=== PATIENT | male | born 1975 | race American Indian/Alaskan Native ===

== ENCOUNTER 2017-02-02 07:06 | Emergency (ER) | payer MEDICARE ==
[2017-02-02 07:53] LABS: Basophils % (Auto) 1.2 % (0.0-1.8); Eosinophils % (Auto) 0.2 % (0.0-4.3); Hematocrit 48.2 % (35.5-45.6); Hemoglobin 16.2 gm/dl (11.8-15.2); Mean Corpuscular HGB Conc 34 % (32-34); Mean Corpuscular Hemoglobin 31 pg (28-32); Mean Corpuscular Volume 93 fl (84-94); Platelet Count 212 K/mm3 (140-440); Red Blood Count 5.18 M/mm3 (3.65-5.03); Red Cell Distribution Width 13.7 % (13.2-15.2); White Blood Count 10.6 K/mm3 (4.5-11.0)
[2017-02-02 08:07] LABS: Anion Gap 20 mmol/L; BUN/Creatinine Ratio 14.44; Blood Urea Nitrogen 13 mg/dL (9-20); Calcium 9.7 mg/dL (8.4-10.2); Carbon Dioxide 20 mmol/L (22-30); Chloride 98.2 mmol/L (98-107); Glucose 99 mg/dL (75-100); Potassium 3.6 mmol/L (3.6-5.0); Sodium 135 mmol/L (137-145)
[2017-02-02] MEDS ORDERED: MOTRIN PO ONE (11:42)
[2017-02-02] MEDS ORDERED: ZOFRAN ODT PO ONE (11:42)
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
[2017-02-02 14:58] VITALS: BP 124/63
== END 2017-02-02 14:57 | disposition home or self-care (01) ==
LOC: ED 07:06
DX: R07.89 Other chest pain (principal); F17.200 Nicotine dependence, unspecified, uncomplicated
CPT/HCPCS: 36415; 80048; 84484; 85025; 93005; 93010; Q0162

== ENCOUNTER 2017-10-09 02:44 | Emergency (ER) | payer MEDICARE ==
[2017-10-09 02:51] VITALS: BP 151/97
[2017-10-09 03:14] LABS: Basophils % (Auto) 0.9 % (0.0-1.8); Eosinophils % (Auto) 1.1 % (0.0-4.3); Hematocrit 45.5 % (35.5-45.6); Hemoglobin 15.7 gm/dl (11.8-15.2); Mean Corpuscular HGB Conc 35 % (32-34); Mean Corpuscular Hemoglobin 33 pg (28-32); Mean Corpuscular Volume 94 fl (84-94); Platelet Count 192 K/mm3 (140-440); Red Blood Count 4.84 M/mm3 (3.65-5.03); Red Cell Distribution Width 13.5 % (13.2-15.2); White Blood Count 9.4 K/mm3 (4.5-11.0)
--- NOTE | 2017-10-09 03:24 | XRay Report ---
FINAL REPORT EXAM: XR CHEST ROUTINE 2V HISTORY: SOB TECHNIQUE: PA and lateral views of the chest were submitted. FINDINGS: Heart size and mediastinum appear normal. The thoracic aorta is mildly tortuous. The lungs are clear. Pleural fluid is not seen. The bones and soft tissues reveal disc degeneration in the thoracic spine. IMPRESSION: No active chest disease.
[2017-10-09 03:33] LABS: Alanine Aminotransferase 14 units/L (7-56); Albumin 4.3 g/dL (3.9-5); Albumin/Globulin Ratio 1.5 %; Alkaline Phosphatase 64 units/L (35-129); Anion Gap 17 mmol/L; BUN/Creatinine Ratio 15; Blood Urea Nitrogen 16 mg/dL (9-20); Calcium 8.9 mg/dL (8.4-10.2); Carbon Dioxide 25 mmol/L (22-30); Chloride 97.6 mmol/L (98-107); Glucose 112 mg/dL (75-100); Potassium 3.6 mmol/L (3.6-5.0); Sodium 136 mmol/L (137-145); Total Protein 7.1 g/dL (6.3-8.2)
[2017-10-09] MEDS ORDERED: TORADOL IM ONE (06:10)
[2017-10-09] MEDS ORDERED: ULTRAM PO ONE (06:10)
--- NOTE | 2017-10-09 06:24 | Emergency Department Report ---
- General Chief Complaint: Pain General Stated Complaint: BODY PAIN Time Seen by Provider: 10/09/17 05:59 Source: patient, EMS Mode of arrival: Ambulatory Limitations: No Limitations - History of Present Illness Initial Comments: 42-year-old male denies a previous diagnosis of hypertension presents to the hospital will complaints of body aches, cough, and chills for 7 days. Cough productive of yellow sputum. Patient has 7/10 generalized body aches and chest pain with cough and palpation. Patient did not receive a flu shot. The contacts or recent travel reported. This complains of mild shortness of breath. BP elevated upon arrival patient denies a known history. On previous medical reviewed the pressure has been elevated in the past but then returned to normal during ED stay. PMD: None - Related Data Previous Rx's Medication Instructions Recorded Last Taken Type Benzonatate [Tessalon Perles] 100 mg PO Q8HR #20 capsule 10/09/17 Unknown Rx Ibuprofen [Motrin] 800 mg PO Q8HR PRN #30 tablet 10/09/17 Unknown Rx Sodium Chloride [Saline Nasal 88 ml NS PRN PRN #1 bottle 10/09/17 Unknown Rx Hubbard] traMADol [Ultram 50 MG tab] 50 mg PO Q6HR PRN #15 tablet 10/09/17 Unknown Rx Allergies Allergy/AdvReac Type Severity Reaction Status Date / Time No Known Allergies Allergy Unverified 02/02/17 07:18 ED Review of Systems ROS: Stated complaint: BODY PAIN Other details as noted in HPI Comment: All other systems reviewed and negative Other: Constitutional: No fevers. Positive chills reported Eyes: No eye pain visual changes ENT: No ear pain or throat pain Neck: Denies pain Respiratory: as per hpi Cardiovascular: Denies chest pain, palpitations, syncope GI: Denies abdominal pain, nausea, vomiting, diarrhea : Denies dysuria, urinary frequency, or urgency Musculoskeletal: as per hpi Skin: Denies rash, lesions, erythema Neurologic: Denies headache, numbness, weakness Psychiatric: Denies suicidal ideation, hallucinations ED Past Medical Hx - Past Medical History Previous Medical History?: Yes Hx Hypertension: Yes Hx Psychiatric Treatment: Yes Additional medical history: [place] - Surgical History Additional Surgical History: Eye removed, Right knee surgery - Social History Smoking Status: Current Some Day Smoker Substance Use Type: None - Medications Home Medications: Home Medications Medication Instructions Recorded Confirmed Last Taken Type Benzonatate [Tessalon Perles] 100 mg PO Q8HR #20 capsule 10/09/17 Unknown Rx Ibuprofen [Motrin] 800 mg PO Q8HR PRN #30 tablet 10/09/17 Unknown Rx Sodium Chloride [Saline Nasal 88 ml NS PRN PRN #1 bottle 10/09/17 Unknown Rx Hubbard] traMADol [Ultram 50 MG tab] 50 mg PO Q6HR PRN #15 tablet 10/09/17 Unknown Rx ED Physical Exam - General Limitations: No Limitations - Other Other exam information: General: No limitations, patient is alert in no acute distress Head exam: Atraumatic, normocephalic Eyes exam: Normal appearanc ENT: Moist mucous membrane and no tender cervical lymphadenopathy Neck exam: Normal inspection, full range of motion, no meningismus nontender Respiratory exam: Clear to auscultation bilateral, no wheezes, rales, crackles Cardiovascular: Normal rate and rhythm, normal heart sounds anterior chest wall tenderness Abdomen: Soft, nondistended, and nontender, with normal bowel sounds, no rebound, or guarding Extremity: Full range of motion normal inspection no deformity Back: Normal Inspection, full range of motion, no tenderness Neurologic: Alert, oriented x3, cranial nerves intact, no motor or sensory deficit Psychiatric: normal affect, normal mood Skin: Warm, dry, intact ED Course Vital Signs 10/09/17 10/09/17 02:47 02:50 Temperature 98.1 F 98.4 F Pulse Rate 86 Respiratory 18 18 Rate Blood Pressure 151/97 151/97 O2 Sat by Pulse 98 Oximetry - Reevaluation(s) Reevaluation #1: 10/09/17 06:27 Tramadol and Toradol provided for pain ED Medical Decision Making - Lab Data Result diagrams: 10/09/17 02:54 10/09/17 02:54 Lab Results 10/09/17 10/09/17 Range/Units 02:54 02:54 WBC 9.4 (4.5-11.0) K/mm3 RBC 4.84 (3.65-5.03) M/mm3 Hgb 15.7 H (11.8-15.2) gm/dl Hct 45.5 (35.5-45.6) % MCV 94 (84-94) fl MCH 33 H (28-32) pg MCHC 35 H (32-34) % RDW 13.5 (13.2-15.2) % Plt Count 192 (140-440) K/mm3 Lymph % (Auto) 44.0 H (13.4-35.0) % [place] % (Auto) 5.4 (0.0-7.3) % Eos % (Auto) 1.1 (0.0-4.3) % Baso % (Auto) 0.9 (0.0-1.8) % Lymph # 4.1 (1.2-5.4) K/mm3 [place] # 0.5 (0.0-0.8) K/mm3 Eos # 0.1 (0.0-0.4) K/mm3 Baso # 0.1 (0.0-0.1) K/mm3 Seg Neutrophils % 48.6 (40.0-70.0) % Seg Neutrophils # 4.6 (1.8-7.7) K/mm3 Sodium 136 L (137-145) mmol/L Potassium 3.6 (3.6-5.0) mmol/L Chloride 97.6 L (98-107) mmol/L Carbon Dioxide 25 (22-30) mmol/L Anion Gap 17 mmol/L BUN 16 (9-20) mg/dL Creatinine 1.1 (0.8-1.5) mg/dL Estimated GFR > 60 ml/min BUN/Creatinine Ratio 15 % Glucose 112 H (75-100) mg/dL Calcium 8.9 (8.4-10.2) mg/dL Total Bilirubin 0.60 (0.1-1.2) mg/dL AST 19 (5-40) units/L ALT 14 (7-56) units/L Alkaline Phosphatase 64 (35-129) units/L Total Protein 7.1 (6.3-8.2) g/dL Albumin 4.3 (3.9-5) g/dL Albumin/Globulin Ratio 1.5 % - Radiology Data Radiology results: report reviewed (Chest x-ray: no acute findings) - Medical Decision Making X-ray negative for infiltrate. Labs unremarkable. Patient was treated for viral syndrome. Blood pressure elevated. Patient instructed to monitor his blood as an outpatient, recorded values, and follow-up with the primary care doctor for further management. - Differential Diagnosis pneumonia, bronchitis, viral syndrome, influenza Critical Care Time: No Critical care attestation.: If time is entered above; I have spent that time in minutes in the direct care of this critically ill patient, excluding procedure time. ED Disposition Clinical Impression: Viral syndrome, Body aches, Elevated blood pressure reading Disposition: TO HOME OR SELFCARE Is pt being admited?: No Does the pt Need Aspirin: No Condition: Stable Instructions: Viral Syndrome (ED), How to Take a Blood Pressure (ED) Additional Instructions: Take medication as prescribed. Continue to monitor your blood pressure discussed. Return symptoms worsen Prescriptions: Benzonatate [Tessalon Perles] 100 mg PO Q8HR #20 capsule Ibuprofen [Motrin] 800 mg PO Q8HR PRN #30 tablet PRN Reason: Pain Sodium Chloride [Saline Nasal Hubbard] 88 ml NS PRN PRN #1 bottle PRN Reason: Nasal Congestion traMADol [Ultram 50 MG tab] 50 mg PO Q6HR PRN #15 tablet PRN Reason: Pain Referrals: PRIMARY CAREMD [Primary Care Provider] - 3-5 Days CASSY DOSHI MD, PHD [Staff Physician] - 3-5 Days [facility] [Provider Group] - 3-5 Days Time of Disposition: 06:31
== END 2017-10-09 06:54 | disposition home or self-care (01) ==
LOC: ED 02:44
DX: B34.9 Viral infection, unspecified (principal); M79.1 Myalgia; I10 Essential (primary) hypertension; H40.9 Unspecified glaucoma; F17.200 Nicotine dependence, unspecified, uncomplicated
CPT/HCPCS: 36415; 71020; 80053; 85025; 96372; 99284; J1885

== ENCOUNTER 2019-09-18 00:52 | Emergency (ER) | payer MEDICARE ==
--- NOTE | 2019-09-18 02:40 | Ultrasound Report ---
ULTRASOUND SCROTUM INDICATION / CLINICAL INFORMATION: Right scrotum pain and swelling. COMPARISON: None available. FINDINGS -- RIGHT TESTIS: Size = 2.9 x 3.3 x 2.3 cm. - Appearance: No significant abnormality. - Cyst or Mass: None. - Color Doppler Flow: Slightly increased. EPIDIDYMIS: Mildly enlarged. HYDROCELE: Small. VARICOCELE: None demonstrated. FINDINGS -- LEFT TESTIS: Size = 2.5 x 3.1 x 2.6 cm. - Appearance: No significant abnormality. - Cyst or Mass: None. - Color Doppler Flow: No significant abnormality. EPIDIDYMIS: No significant abnormality. HYDROCELE: Tiny. VARICOCELE: None demonstrated. ADDITIONAL FINDINGS: None. IMPRESSION: 1. Possible mild right epididymoorchitis. Small right hydrocele. Signer Name: Sophy Howard MD Signed: 09/18/2019 2:35 AM Workstation Name: [id number]
[2019-09-18] MEDS ORDERED: MORPHINE 4 MG/1 ML INJ IV ONE (02:41)
[2019-09-18] MEDS ORDERED: SODIUM CHLORIDE 0.9% 1000 ML 1,000 ML IV ONE (02:41)
[2019-09-18] MEDS ORDERED: ONDANSETRON 4 MG/2 ML INJ IV ONE (02:42)
[2019-09-18] MEDS ORDERED: DOXYCYCLINE HYCLATE 100 MG in SODIUM CHLORIDE 0.9% 250ML 250 ML IV ONE (03:00)
--- NOTE | 2019-09-18 03:47 | Emergency Department Report ---
HPI <TERESA GARAY - Last Filed: 09/18/19 04:19> - HPI HPI: 44-year-old male presents to the emergency department with complaint of pain to the right side of the scrotum, groin and abdomen that started around 2 PM this afternoon. He has some mild discomfort while urinating and also thinks that he has noticed some blood in the urine. He denies any fever, back pain, nausea, vomiting, diarrhea. He has not taken anything for his symptoms prior to presentation today. He has a past medical history of hypertension, glaucoma, cataracts and left eye removal. He denies any trauma or injury. <JOSE EDUARDOTHOMAS S - Last Filed: 09/19/19 06:06> - General Chief Complaint: Urogenital-Male Time Seen by Provider: 09/18/19 02:24 ED Past Medical Hx <TERESA GARAY - Last Filed: 09/18/19 04:19> - Past Medical History Previous Medical History?: Yes Hx Hypertension: Yes Hx Psychiatric Treatment: Yes Additional medical history: [place] - Surgical History Past Surgical History?: Yes Additional Surgical History: Eye removed, Right knee surgery - Social History Smoking Status: Current Every Day Smoker Substance Use Type: Alcohol, Marijuana <JOSE EDUARDOTHOMAS Bob - Last Filed: 09/19/19 06:06> - Medications Home Medications: Home Medications Medication Instructions Recorded Confirmed Last Taken Type Benzonatate [Tessalon Perles] 100 mg PO Q8HR #20 capsule 10/09/17 Unknown Rx Ibuprofen [Motrin] 800 mg PO Q8HR PRN #30 tablet 10/09/17 Unknown Rx Sodium Chloride [Saline Nasal 88 ml NS PRN PRN #1 bottle 10/09/17 Unknown Rx [place]] traMADol [Ultram 50 MG tab] 50 mg PO Q6HR PRN #15 tablet 10/09/17 Unknown Rx Doxycycline Hyclate [Doxycycline 100 mg PO Q12HR #20 tab 09/18/19 Unknown Rx Hyclate TAB] ED Review of Systems ROS: Stated complaint: R SIDE GROIN SWELLING Other details as noted in HPI <TERESA GARAY - Last Filed: 09/18/19 04:19> ROS: Stated complaint: R SIDE GROIN SWELLING Other details as noted in HPI Comment: All other systems reviewed and negative Constitutional: denies: chills, fever Gastrointestinal: abdominal pain. denies: nausea, vomiting Genitourinary: dysuria, hematuria, testicular pain Musculoskeletal: denies: back pain <THOMAS WHITT - Last Filed: 09/19/19 06:06> Physical Exam - Physical Exam Vital Signs: Vital Signs 09/18/19 09/18/19 00:58 02:38 Temperature 98.4 F 98.4 F Pulse Rate 104 H 83 Respiratory 18 17 Rate Blood Pressure 143/89 Blood Pressure 137/86 [Left] O2 Sat by Pulse 96 98 Oximetry <TERESA GARAY - Last Filed: 09/18/19 04:19> - Physical Exam Vital Signs: Vital Signs 09/18/19 09/18/19 00:58 02:38 Temperature 98.4 F 98.4 F Pulse Rate 104 H 83 Respiratory 18 17 Rate Blood Pressure 143/89 Blood Pressure 137/86 [Left] O2 Sat by Pulse 96 98 Oximetry Physical Exam: GENERAL: The patient is well-developed well-nourished. HENT: Normocephalic. Atraumatic. Patient has moist mucous membranes. EYES: Extraocular motions are intact. NECK: Supple. Trachea is midline. CHEST/LUNGS: Clear to auscultation. There is no respiratory distress noted. HEART/CARDIOVASCULAR: Regular. There is no tachycardia. There is no murmur. ABDOMEN: Abdomen is soft. There is some right middle to lower quadrant abdominal tenderness to palpation. No guarding. Patient has normal bowel sounds. There is no abdominal distention. SKIN: Skin is warm and dry. NEURO: The patient is awake, alert, and oriented. The patient is cooperative. Normal speech. MUSCULOSKELETAL: There is no tenderness or deformity. There is no limitation range of motion. There is no evidence of acute injury. : There is tenderness to palpation of the right testicle and right side of the scrotum. No obvious lesions. <THOMAS WHITT S - Last Filed: 09/19/19 06:06> ED Course Vital Signs 09/18/19 09/18/19 00:58 02:38 Temperature 98.4 F 98.4 F Pulse Rate 104 H 83 Respiratory 18 17 Rate Blood Pressure 143/89 Blood Pressure 137/86 [Left] O2 Sat by Pulse 96 98 Oximetry <TERESA GARAY - Last Filed: 09/18/19 04:19> Vital Signs 11/08/19 11/08/19 00:58 02:38 Temperature 98.4 F 98.4 F Pulse Rate 104 H 83 Respiratory 18 17 Rate Blood Pressure 143/89 Blood Pressure 137/86 [Left] O2 Sat by Pulse 96 98 Oximetry <THOMAS WHITT - Last Filed: 09/19/19 06:06> ED Medical Decision Making - Radiology Data CT ABDOMEN AND PELVIS WITHOUT CONTRAST INDICATION / CLINICAL INFORMATION: RLQ pain down to the scrotum. TECHNIQUE: Axial CT images were obtained through the abdomen and pelvis without IV contrast. All CT scans at this location are performed using CT dose reduction for ALARA by means of automated exposure control. COMPARISON: Ultrasound scrotum dated 09/18/19 FINDINGS: LOWER CHEST: No significant abnormality. LIVER: No significant abnormality. GALLBLADDER: No significant abnormality. BILE DUCTS: No significant abnormality. PANCREAS: No significant abnormality. SPLEEN: No significant abnormality. ADRENALS: No significant abnormality. RIGHT KIDNEY and URETER: No significant abnormality. LEFT KIDNEY and URETER: No significant abnormality. STOMACH and SMALL BOWEL: No significant abnormality. COLON: No significant abnormality. APPENDIX: No significant abnormality. PERITONEUM: No free fluid. No free air. No fluid collection. LYMPH NODES: No significant adenopathy. AORTA and ARTERIES: No significant abnormality. IVC and VEINS: No significant abnormality. URINARY BLADDER: No significant abnormality. REPRODUCTIVE ORGANS: No significant abnormality. ADDITIONAL FINDINGS: Very small fat-containing right inguinal hernia. SKELETAL SYSTEM: No significant abnormality. IMPRESSION: 1. No urinary tract stones or hydronephrosis. 2. No inflammatory process or bowel obstruction. Normal appendix. 3. Small fat-containing right inguinal hernia. Signer Name: Sophy Howard MD Signed: 09/18/2019 3:57 AM Workstation Name: [employer] ULTRASOUND SCROTUM INDICATION / CLINICAL INFORMATION: Right scrotum pain and swelling. COMPARISON: None available. FINDINGS -- RIGHT TESTIS: Size = 2.9 x 3.3 x 2.3 cm. - Appearance: No significant abnormality. - Cyst or Mass: None. - Color Doppler Flow: Slightly increased. EPIDIDYMIS: Mildly enlarged. HYDROCELE: Small. VARICOCELE: None demonstrated. FINDINGS -- LEFT TESTIS: Size = 2.5 x 3.1 x 2.6 cm. - Appearance: No significant abnormality. - Cyst or Mass: None. - Color Doppler Flow: No significant abnormality. EPIDIDYMIS: No significant abnormality. HYDROCELE: Tiny. VARICOCELE: None demonstrated. ADDITIONAL FINDINGS: None. IMPRESSION: 1. Possible mild right epididymoorchitis. Small right hydrocele. Signer Name: Sophy Howard MD Signed: 09/18/2019 2:35 AM Workstation Name: [id number] Transcribed By: DT Dictated By: Triston Howard MD Electronically Authenticated By: Triston Howard MD Signed Date/Time: 09/18/19 0235 <TERESA GARAY - Last Filed: 09/18/19 04:19> - Medical Decision Making This patient presents with some acute right-sided testicular/scrotal pain with some pain that goes up to the lower to mid right side of the abdomen. A testicular ultrasound was done that does not show any torsion but does show some mild right epididymal orchitis. Patient also had a CT scan of the abdomen and pelvis without contrast that did not show any stone or any other acute process. Patient was given pain medication in the emergency department and was resting comfortably. He was also given a dose of doxycycline and Rocephin. Patient be discharged home to follow up with primary care, urology, and has been placed on a ten-day course of antibiotics. He will return to the ER with any worsening of his symptoms or any acute distress. - Differential Diagnosis torsion, epididymitis, orchitis, nephrolithiasis <THOMAS WHITT - Last Filed: 09/19/19 06:06> Critical care attestation.: If time is entered above; I have spent that time in minutes in the direct care of this critically ill patient, excluding procedure time. <TERESA GARAY - Last Filed: 09/18/19 04:19> Critical Care Time: No Critical care attestation.: If time is entered above; I have spent that time in minutes in the direct care of this critically ill patient, excluding procedure time. <THOMAS WHITT - Last Filed: 09/19/19 06:06> ED Disposition Is pt being admited?: No <TERESA GARAY - Last Filed: 09/18/19 04:19> Is pt being admited?: No Time of Disposition: 03:47 <THOMAS WHITT - Last Filed: 09/19/19 06:06> Clinical Impression: Epididymo-orchitis, Testicular pain, right Abdominal pain Qualifiers: Abdominal location: right lower quadrant Qualified Code(s): R10.31 - Right lower quadrant pain Disposition: TO HOME OR SELFCARE Condition: Stable Instructions: Epididymitis (ED) Additional Instructions: Please follow-up with a primary care physician in the next few days. I have also given you a referral for a local urologist, Dr. Castanon, to follow up regarding the testicular pain and the epididymo-orchitis. Return to the emergency Department with any worsening of your symptoms or any acute distress. Prescriptions: Doxycycline Hyclate [Doxycycline Hyclate TAB] 100 mg PO Q12HR #20 tab Referrals: PRIMARY CAREMD [Primary Care Provider] - 3-5 Days CARLOS A CASTANON MD [Staff Physician] - 3-5 Days [facility] [Outside] - 3-5 Days Forms: STI Treatment and Prevention, Work/School Release Form(ED)
[2019-09-18] MEDS ORDERED: LIDOCAINE-MPF (1%) 10 MG/1 ML VIAL 5 ML INFILTRATI ONE (03:51)
--- NOTE | 2019-09-18 04:01 | Cat Scan Report ---
CT ABDOMEN AND PELVIS WITHOUT CONTRAST INDICATION / CLINICAL INFORMATION: RLQ pain down to the scrotum. TECHNIQUE: Axial CT images were obtained through the abdomen and pelvis without IV contrast. All CT scans at [facility] location are performed using CT dose reduction for ALARA by means of automated exposure control. COMPARISON: Ultrasound scrotum dated 09/18/19 FINDINGS: LOWER CHEST: No significant abnormality. LIVER: No significant abnormality. GALLBLADDER: No significant abnormality. BILE DUCTS: No significant abnormality. PANCREAS: No significant abnormality. SPLEEN: No significant abnormality. ADRENALS: No significant abnormality. RIGHT KIDNEY and URETER: No significant abnormality. LEFT KIDNEY and URETER: No significant abnormality. STOMACH and SMALL BOWEL: No significant abnormality. COLON: No significant abnormality. APPENDIX: No significant abnormality. PERITONEUM: No free fluid. No free air. No fluid collection. LYMPH NODES: No significant adenopathy. AORTA and ARTERIES: No significant abnormality. IVC and VEINS: No significant abnormality. URINARY BLADDER: No significant abnormality. REPRODUCTIVE ORGANS: No significant abnormality. ADDITIONAL FINDINGS: Very small fat-containing right inguinal hernia. SKELETAL SYSTEM: No significant abnormality. IMPRESSION: 1. No urinary tract stones or hydronephrosis. 2. No inflammatory process or bowel obstruction. Normal appendix. 3. Small fat-containing right inguinal hernia. Signer Name: Sophy Howard MD Signed: 09/18/2019 3:57 AM Workstation Name: [id number]
[2019-09-18 04:38] VITALS: BP 113/56
== END 2019-09-18 05:05 | disposition home or self-care (01) ==
LOC: ED 00:52
DX: N45.3 Epididymo-orchitis (principal); I10 Essential (primary) hypertension; F17.200 Nicotine dependence, unspecified, uncomplicated; F12.10 Cannabis abuse, uncomplicated; Z79.899 Other long term (current) drug therapy; Z98.890 Other specified postprocedural states
CPT/HCPCS: 74176; 93975; 96365; 96372; 96375; 99283; J0696; J2270; J2405; J7030; J7050

== ENCOUNTER 2019-11-05 06:00 | Emergency (ER) | payer MEDICARE ==
[2019-11-05] MEDS ORDERED: cloNIDine 0.2 MG TAB PO ONE (13:04)
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
[2019-11-05 13:30] LABS: Bilirubin,Urine NEG (Negative); Blood,Urine NEG (Negative); Color,Urine Yellow (Yellow); Protein,Urine <15 mg/dL mg/dL (Negative); Urobilinogen,Urine < 2.0 mg/dL (<2.0); WBC,Urine < 1.0 /HPF (0.0-6.0)
[2019-11-05 13:38] LABS: Amphetamine Screen,Urine PRESUMPTIVE NEGATIVE; Benzodiazepines Screen,Urine PRESUMPTIVE NEGATIVE; Methadone Screen,Urine PRESUMPTIVE NEGATIVE; Opiate Screen,Urine PRESUMPTIVE NEGATIVE
[2019-11-05 13:51] LABS: Cannabinoid Screen,Urine PRESUMPTIVE POSITIVE; Cocaine Screen,Urine PRESUMPTIVE POSITIVE
[2019-11-05 16:31] LABS: Basophils % (Auto) 0.6 % (0.0-1.8); Eosinophils # (Auto) 0.1 K/mm3 (0.0-0.4); Eosinophils % (Auto) 1.3 % (0.0-4.3); Hemoglobin 15.7 gm/dl (11.8-15.2); Lymphocytes # (Auto) 2.8 K/mm3 (1.2-5.4); Lymphocytes % (Auto) 41.4 % (13.4-35.0); Mean Corpuscular HGB Conc 33 % (32-34); Mean Corpuscular Volume 96 fl (84-94); Monocytes # (Auto) 0.4 K/mm3 (0.0-0.8); Monocytes % (Auto) 5.8 % (0.0-7.3); Platelet Count 217 K/mm3 (140-440); Red Cell Distribution Width 13.5 % (13.2-15.2)
[2019-11-05 16:47] LABS: Alanine Aminotransferase 10 units/L (7-56); Albumin 4.1 g/dL (3.9-5); BUN/Creatinine Ratio 13; Blood Urea Nitrogen 14 mg/dL (9-20); Calcium 9.4 mg/dL (8.4-10.2); Hemolysis Index 6
[2019-11-05 17:03] VITALS: BP 109/63
== END 2019-11-05 18:49 ==
LOC: EEVIPCON 06:00 → ED 06:00
DX: F32.9 Major depressive disorder, single episode, unspecified (principal); F14.10 Cocaine abuse, uncomplicated; F12.10 Cannabis abuse, uncomplicated; F17.200 Nicotine dependence, unspecified, uncomplicated; F19.10 Other psychoactive substance abuse, uncomplicated; I10 Essential (primary) hypertension; Z79.899 Other long term (current) drug therapy; Z98.890 Other specified postprocedural states
CPT/HCPCS: 36415; 80053; 80307; 80320; 81001; 82550; 85025; G0480

== ENCOUNTER 2019-11-18 10:58 | Emergency (ER) | payer MEDICARE ==
--- NOTE | 2019-11-18 13:49 | Event Note ---
ED Screening Note Date of service: 11/18/19 Time: 13:47 ED Screening Note: This is a 44 y.o. M. that presents to the ER for substance abuse. Patient states he was released from [facility] Saturday. He relapsed last night on cocaine due to depression. Denies SI/HI. This initial assessment/diagnostic orders/clinical plan/treatment(s) is/are subject to change based on patients health status, clinical progression and re- assessment by fellow clinical providers in the ED. Further treatment and workup at subsequent clinical providers discretion. Patient/guardian urged not to elope from the ED as their condition may be serious if not clinically assessed and managed. Initial orders include: Labs
[2019-11-18 14:27] LABS: Basophils # (Auto) 0.1 K/mm3 (0.0-0.1); Basophils % (Auto) 0.7 % (0.0-1.8); Eosinophils # (Auto) 0.1 K/mm3 (0.0-0.4); Eosinophils % (Auto) 1.2 % (0.0-4.3); Hematocrit 44.8 % (35.5-45.6); Hemoglobin 15.4 gm/dl (11.8-15.2); Lymphocytes % (Auto) 32.9 % (13.4-35.0); Mean Corpuscular HGB Conc 34 % (32-34); Mean Corpuscular Volume 95 fl (84-94); Monocytes # (Auto) 0.6 K/mm3 (0.0-0.8); Monocytes % (Auto) 6.9 % (0.0-7.3); Platelet Count 211 K/mm3 (140-440); Red Blood Count 4.74 M/mm3 (3.65-5.03); Red Cell Distribution Width 13.6 % (13.2-15.2)
[2019-11-18 14:49] LABS: BUN/Creatinine Ratio 21; Blood Urea Nitrogen 21 mg/dL (9-20); Calcium 9.6 mg/dL (8.4-10.2); Hemolysis Index 17
[2019-11-18 15:19] LABS: Bilirubin,Urine NEG (Negative); Blood,Urine NEG (Negative); Color,Urine Yellow (Yellow); Mucus,Urine FEW /HPF; Protein,Urine <15 mg/dL mg/dL (Negative); WBC,Urine < 1.0 /HPF (0.0-6.0)
[2019-11-18 15:35] LABS: Amphetamine Screen,Urine PRESUMPTIVE NEGATIVE; Benzodiazepines Screen,Urine PRESUMPTIVE NEGATIVE; Methadone Screen,Urine PRESUMPTIVE NEGATIVE; Opiate Screen,Urine PRESUMPTIVE NEGATIVE
[2019-11-18 15:47] LABS: Cannabinoid Screen,Urine PRESUMPTIVE POSITIVE; Cocaine Screen,Urine PRESUMPTIVE POSITIVE
--- NOTE | 2019-11-18 22:50 | Emergency Department Report ---
<CARLOS BACKMaicol - Last Filed: 11/18/19 22:46> ED Medical Clearance HPI - General Chief complaint: Medical Clearance Stated complaint: DETOX Time Seen by Provider: 11/18/19 13:46 Source: patient Mode of arrival: Ambulatory - History of Present Illness Initial comments: Patient is 44 years old male with history of depression and drug abuse mainly cocaine abuse. Patient presented to the ER requesting and medical clearance and admission to a detox program. Patient stated that he was released from [facility] detox facility last Saturday but he relapsed yesterday. Patient denied any suicidal or homicidal ideation. Patient also denied any auditory or visual hallucination. MD Complaint: medical clearance request Reason for Medical Clearance: intoxication Traumatic Symptoms: denies traumatic injury Treatments Prior to Arrival: none Home medications: Home Medications Medication Instructions Recorded Confirmed Last Taken No Known Home Medications [No 11/19/19 11/19/19 Unknown Reported Home Medications] Allergies/Adverse reactions: Allergies Allergy/AdvReac Type Severity Reaction Status Date / Time No Known Allergies Allergy Verified 11/18/19 13:48 ED Review of Systems Comment: All other systems reviewed and negative Constitutional: denies: chills, fever Respiratory: denies: cough, shortness of breath, SOB with exertion, wheezing Cardiovascular: denies: chest pain, palpitations Gastrointestinal: denies: abdominal pain, nausea, vomiting Musculoskeletal: denies: back pain Neurological: denies: headache, weakness Psychiatric: denies: anxiety, depression, auditory hallucinations, visual hallucinations, homicidal thoughts, suicidal thoughts ED Past Medical Hx - Past Medical History Previous Medical History?: Yes Hx Hypertension: Yes Hx Psychiatric Treatment: Yes (depression- off zoloft and ambien for months) Additional medical history: 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 Also surg to [facility] years ago. - Surgical History Additional Surgical History: Eye removed, Right knee surgery - Social History Smoking Status: Current Some Day Smoker Substance Use Type: Alcohol, Cocaine - Medications Home Medications: Home Medications Medication Instructions Recorded Confirmed Last Taken Type No Known Home Medications [No 11/19/19 11/19/19 Unknown History Reported Home Medications] ED Physical Exam - General Limitations: No Limitations General appearance: alert, in no apparent distress - Head Head exam: Present: atraumatic, normocephalic, normal inspection - ENT ENT exam: Present: normal exam, normal orophraynx, mucous membranes moist - Neck Neck exam: Present: normal inspection, full ROM. Absent: tenderness, meningismus - Respiratory Respiratory exam: Present: normal lung sounds bilaterally - Cardiovascular Cardiovascular Exam: Present: regular rate, normal rhythm, normal heart sounds - GI/Abdominal GI/Abdominal exam: Present: soft, normal bowel sounds. Absent: distended, tenderness, guarding, rebound, rigid, organomegaly, mass, bruit, pulsatile mass, hernia - Extremities Exam Extremities exam: Present: normal inspection, full ROM, normal capillary refill. Absent: pedal edema, calf tenderness - Back Exam Back exam: Present: normal inspection, full ROM. Absent: CVA tenderness (R), CVA tenderness (L), muscle spasm, paraspinal tenderness, vertebral tenderness - Neurological Exam Neurological exam: Present: alert, oriented X3, CN II-XII intact, normal gait, reflexes normal - Psychiatric Psychiatric exam: Present: normal mood. Absent: depressed, agitated, anxious, flat affect, manic, homicidal ideation, suicidal ideation - Skin Skin exam: Present: warm, intact, normal color ED Medical Decision Making - Lab Data Result diagrams: 11/18/19 13:56 11/18/19 13:56 ED Disposition Clinical Impression: Polysubstance abuse, Cocaine abuse Disposition: DC-01 TO HOME OR SELFCARE Condition: Stable Additional Instructions: Please see referrals for outpatient therapy Referrals: PRIMARY CARE, [Primary Care Provider] - 3-5 Days <TERESA GARAY - Last Filed: 11/19/19 10:57> ED Review of Systems ROS: Stated complaint: DETOX Other details as noted in HPI ED Course Vital Signs 11/18/19 11/18/19 11:27 22:52 Temperature 98.2 F 98.3 F Pulse Rate 109 H 80 Respiratory 18 18 Rate Blood Pressure 176/100 Blood Pressure 153/109 [Left] O2 Sat by Pulse 92 98 Oximetry ED Medical Decision Making - Lab Data Result diagrams: 11/18/19 13:56 11/18/19 13:56 Lab Results 11/18/19 11/18/19 11/18/19 Range/Units 13:56 13:56 13:56 WBC (4.5-11.0) K/mm3 RBC (3.65-5.03) M/mm3 Hgb (11.8-15.2) gm/dl Hct (35.5-45.6) % MCV (84-94) fl MCH (28-32) pg MCHC (32-34) % RDW (13.2-15.2) % Plt Count (140-440) K/mm3 Lymph % (Auto) (13.4-35.0) % [place] % (Auto) (0.0-7.3) % Eos % (Auto) (0.0-4.3) % Baso % (Auto) (0.0-1.8) % Lymph # (1.2-5.4) K/mm3 [place] # (0.0-0.8) K/mm3 Eos # (0.0-0.4) K/mm3 Baso # (0.0-0.1) K/mm3 Seg Neutrophils % (40.0-70.0) % Seg Neutrophils # (1.8-7.7) K/mm3 Sodium 141 (137-145) mmol/L Potassium 4.0 (3.6-5.0) mmol/L Chloride 102.3 (98-107) mmol/L Carbon Dioxide 20 L (22-30) mmol/L Anion Gap 23 mmol/L BUN 21 H (9-20) mg/dL Creatinine 1.0 (0.8-1.5) mg/dL Estimated GFR > 60 ml/min BUN/Creatinine Ratio 21 % Glucose 116 H (75-100) mg/dL Calcium 9.6 (8.4-10.2) mg/dL Urine Color (Yellow) Urine Turbidity (Clear) Urine pH (5.0-7.0) Ur Specific [place] (1.003-1.030) Urine Protein (Negative) mg/dL Urine Glucose (UA) (Negative) mg/dL Urine Ketones (Negative) mg/dL Urine Blood (Negative) Urine Nitrite (Negative) Urine Bilirubin (Negative) Urine Urobilinogen (<2.0) mg/dL Ur Leukocyte Esterase (Negative) Urine WBC (Auto) (0.0-6.0) /HPF Urine RBC (Auto) (0.0-6.0) /HPF U Epithel Cells (Auto) (0-13.0) /HPF Urine Mucus /HPF Salicylates < 0.3 L (2.8-20.0) mg/dL Urine Opiates Screen Urine Methadone Screen Acetaminophen < 5.0 L (10.0-30.0) ug/mL Ur Barbiturates Screen Ur Phencyclidine Scrn Ur Amphetamines Screen U Benzodiazepines Scrn Urine Cocaine Screen U Marijuana (THC) Screen Drugs of Abuse Note Plasma/Serum Alcohol (0-0.07) % 11/18/19 11/18/19 11/18/19 Range/Units 13:56 13:56 14:55 WBC 9.2 (4.5-11.0) K/mm3 RBC 4.74 (3.65-5.03) M/mm3 Hgb 15.4 H (11.8-15.2) gm/dl Hct 44.8 (35.5-45.6) % MCV 95 H (84-94) fl MCH 32 (28-32) pg MCHC 34 (32-34) % RDW 13.6 (13.2-15.2) % Plt Count 211 (140-440) K/mm3 Lymph % (Auto) 32.9 (13.4-35.0) % [place] % (Auto) 6.9 (0.0-7.3) % Eos % (Auto) 1.2 (0.0-4.3) % Baso % (Auto) 0.7 (0.0-1.8) % Lymph # 3.0 (1.2-5.4) K/mm3 [place] # 0.6 (0.0-0.8) K/mm3 Eos # 0.1 (0.0-0.4) K/mm3 Baso # 0.1 (0.0-0.1) K/mm3 Seg Neutrophils % 58.3 (40.0-70.0) % Seg Neutrophils # 5.4 (1.8-7.7) K/mm3 Sodium (137-145) mmol/L Potassium (3.6-5.0) mmol/L Chloride (98-107) mmol/L Carbon Dioxide (22-30) mmol/L Anion Gap mmol/L BUN (9-20) mg/dL Creatinine (0.8-1.5) mg/dL Estimated GFR ml/min BUN/Creatinine Ratio % Glucose (75-100) mg/dL Calcium (8.4-10.2) mg/dL Urine Color Yellow (Yellow) Urine Turbidity Clear (Clear) Urine pH 6.0 (5.0-7.0) Ur Specific [place] 1.026 (1.003-1.030) Urine Protein <15 mg/dl (Negative) mg/dL Urine Glucose (UA) Neg (Negative) mg/dL Urine Ketones Neg (Negative) mg/dL Urine Blood Neg (Negative) Urine Nitrite Neg (Negative) Urine Bilirubin Neg (Negative) Urine Urobilinogen 2.0 (<2.0) mg/dL Ur Leukocyte Esterase Neg (Negative) Urine WBC (Auto) < 1.0 (0.0-6.0) /HPF Urine RBC (Auto) 3.0 (0.0-6.0) /HPF U Epithel Cells (Auto) < 1.0 (0-13.0) /HPF Urine Mucus Few /HPF Salicylates (2.8-20.0) mg/dL Urine Opiates Screen Urine Methadone Screen Acetaminophen (10.0-30.0) ug/mL Ur Barbiturates Screen Ur Phencyclidine Scrn Ur Amphetamines Screen U Benzodiazepines Scrn Urine Cocaine Screen U Marijuana (THC) Screen Drugs of Abuse Note Plasma/Serum Alcohol < 0.01 (0-0.07) % 11/18/19 Range/Units 14:55 WBC (4.5-11.0) K/mm3 RBC (3.65-5.03) M/mm3 Hgb (11.8-15.2) gm/dl Hct (35.5-45.6) % MCV (84-94) fl MCH (28-32) pg MCHC (32-34) % RDW (13.2-15.2) % Plt Count (140-440) K/mm3 Lymph % (Auto) (13.4-35.0) % [place] % (Auto) (0.0-7.3) % Eos % (Auto) (0.0-4.3) % Baso % (Auto) (0.0-1.8) % Lymph # (1.2-5.4) K/mm3 [place] # (0.0-0.8) K/mm3 Eos # (0.0-0.4) K/mm3 Baso # (0.0-0.1) K/mm3 Seg Neutrophils % (40.0-70.0) % Seg Neutrophils # (1.8-7.7) K/mm3 Sodium (137-145) mmol/L Potassium (3.6-5.0) mmol/L Chloride (98-107) mmol/L Carbon Dioxide (22-30) mmol/L Anion Gap mmol/L BUN (9-20) mg/dL Creatinine (0.8-1.5) mg/dL Estimated GFR ml/min BUN/Creatinine Ratio % Glucose (75-100) mg/dL Calcium (8.4-10.2) mg/dL Urine Color (Yellow) Urine Turbidity (Clear) Urine pH (5.0-7.0) Ur Specific [place] (1.003-1.030) Urine Protein (Negative) mg/dL Urine Glucose (UA) (Negative) mg/dL Urine Ketones (Negative) mg/dL Urine Blood (Negative) Urine Nitrite (Negative) Urine Bilirubin (Negative) Urine Urobilinogen (<2.0) mg/dL Ur Leukocyte Esterase (Negative) Urine WBC (Auto) (0.0-6.0) /HPF Urine RBC (Auto) (0.0-6.0) /HPF U Epithel Cells (Auto) (0-13.0) /HPF Urine Mucus /HPF Salicylates (2.8-20.0) mg/dL Urine Opiates Screen Presumptive negative Urine Methadone Screen Presumptive negative Acetaminophen (10.0-30.0) ug/mL Ur Barbiturates Screen Presumptive negative Ur Phencyclidine Scrn Presumptive negative Ur Amphetamines Screen Presumptive negative U Benzodiazepines Scrn Presumptive negative Urine Cocaine Screen Presumptive positive U Marijuana (THC) Screen Presumptive positive Drugs of Abuse Note Disclamer Plasma/Serum Alcohol (0-0.07) % - Medical Decision Making Patient has been seen by our mental health assessment team. Patient has had arrangement to follow up with a residential detox program the patient is safe for discharge. 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 Pt is alert and oriented x 4. Pt reports no AH or VH. Pt was neatly groomed and had hygiene completed. The is able to vocalize his needs, good insight and judgement. Pt has a reports a history of Schizoaffective Disorder. The pt was recently treated inpatient at [facility] for command auditory hallucinations and substance use. The pt reports that he is now seeking [facility] substance use treatment. No SI. No HI.Pt reports a lengthy history of cocaine dependence. Pt reports that he was clean while at [facility] recently. The pt reports he relapsed after getting out. "I want real help; somewhere custodial."Pt reports he has no stable housing. RECOMMENDATION: Pt does not meet inpatient criteria due to no SI, no HI and no AH or VH. Mental health security system installer will provide outpatient referrals for residential substance treatment and complete discharge safety plan. Emely Alberto LPC Initialized on 11/19/19 10:28 - END OF NOTE ED Disposition Is pt being admited?: No Does the pt Need Aspirin: No Time of Disposition: 10:56
[2019-11-19 12:37] VITALS: BP 130/87
== END 2019-11-19 15:00 | disposition home or self-care (01) ==
LOC: ED 10:58 → EEVIPCON 10:58 → ED 11-19 15:00
DX: F14.10 Cocaine abuse, uncomplicated (principal); F19.10 Other psychoactive substance abuse, uncomplicated; I10 Essential (primary) hypertension; F17.200 Nicotine dependence, unspecified, uncomplicated; Z98.890 Other specified postprocedural states
CPT/HCPCS: 36415; 80048; 80307; 80320; 81001; 85025; G0480